=== PATIENT | male | born 2000 | race African-American/Black ===

== ENCOUNTER 2025-07-31 20:11 | Emergency (ER) | payer BC ==
[2025-07-31] MEDS ORDERED: Ibuprofen 200 MG TAB ONE (20:33)
== END 2025-07-31 21:55 | disposition home or self-care (01) ==
LOC: NAV ERS 20:11
DX: S00.03XA Contusion of scalp, initial encounter (principal); S40.012A Contusion of left shoulder, initial encounter; S00.212A Abrasion of left eyelid and periocular area, initial encounter; V49.69XA Unspecified car occupant injured in collision with other motor vehicles in traffic accident, initial encounter
CPT/HCPCS: 70450; 71046; 99284